=== PATIENT | female | born 1965 | race Caucasian/White ===

== ENCOUNTER 2024-04-22 20:14 | Emergency (ER) | payer OTHER ==
[~2024-04-22] VITALS: Ht 165.1 cm; Wt 97.5 kg
[~2024-04-22 20:14] MED LIST: AMLODIPINE BESY10 MG PO; BENAZEPRIL HCL40 MG PO; GLIMEPIRIDE4 MG PO; HYDROCHLOROTH12.5 MG PO; LANTUS100 UNITS/ SQ; METFORMIN HCL500 MG PO
[2024-04-22] MEDS ORDERED: ONDANSETRON ODT4 MG PO (21:22)
[2024-04-22] MEDS ORDERED: IBUPROFEN600 MG PO (21:22)
[2024-04-22] MEDS ORDERED: CEFDINIR300 MG PO (21:22)
[2024-04-22] MEDS ORDERED: PYRIDIUM100 MG PO (21:22)
[2024-04-22] MEDS: SODIUM CHLORIDE 0.9% 1000ML 1,000 ML IV STA (22:12)
[2024-04-22] MEDS: KETOROLAC TROMETHAMINE 30 MG/ML VIAL IV ONE (22:13)
[2024-04-22 23:04] VITALS: PULSE 88; RESP 18; TEMP 97.9
[2024-04-22 23:05] VITALS: BP 129/62; PULSE 88; RESP 18; TEMP 97.9; O2SAT 98
[2024-04-23 04:19] LABS: CLARITY,URINE TURBID (CLEAR); COLOR,URINE RED (YELLOW); GLUCOSE, URINE 2+ (NEGATIVE); KETONES,URINE TRACE (NEGATIVE); LEUKOCYTE ESTERASE ,URINE LARGE (NEGATIVE); NITRITE,URINE POSITIVE (NEGATIVE); PH,URINE 7 (5 - 7); PROTEIN,URINE DIPSTICK >=300 (NEGATIVE)
[2024-04-23 04:20] LABS: BILIRUBIN,URINE MODERATE (NEGATIVE); URINE UROBILINOGEN 1 mg/dL (0.2 - 1)
[2024-04-23 04:23] LABS: BACTERIA,URINE MANY /HPF; EPITHELIAL CELLS,URINE FEW /LPF; RBC,URINE >50 /HPF (0-5)
== END 2024-04-22 23:08 | disposition home or self-care (01) ==
LOC: FSED 20:24
DX: R30.0 Dysuria (principal); N30.91 Cystitis, unspecified with hematuria; I10 Essential (primary) hypertension; E11.9 Type 2 diabetes mellitus without complications; E03.9 Hypothyroidism, unspecified
CPT/HCPCS: 74176; 80053; 81001; 81003; 85025; 96374; 99284; J0696; J1885; J7030